=== PATIENT | female | born 1960 | race African-American/Black ===

== ENCOUNTER 2017-06-29 11:52 | Emergency (ER) | payer SELFPAY ==
[2017-06-29 12:02] VITALS: BP 141/84
--- NOTE | 2017-06-29 12:22 | ER Document Report ---
HPI - HPI Pain Level: 5 Notes: Patient is a 57-year-old female with history of hypertension, previous CVA, eczema, and borderline diabetes (not on meds) who presents to the ED complaining of an eczema flareup to her antecubital space bilaterally, right hand, and the flexor area of the right lateral neck 1-2 weeks. Patient has not been using any medicines for her symptoms. Rash is occ pruritic. She denies any new exposure to chemicals, detergents, soaps, or insect bites. Patient states that she recently moved to the area. She is eating and drinking without difficulties. She is urinating normally and having normal bowel movements. She denies any other recent illness. She has not noticed any abscess or purulent discharge. Denies any drug allergies. Denies any headache , fever, neck pain, URI, sore throat, chest pain, palpitations, syncope, cough, shortness of breath, wheeze, dyspnea, abdominal pain, nausea/vomiting/diarrhea, urinary retention, dysuria, hematuria, numbness/tingling, muscle paralysis/ weaknes. - ROS Systems Reviewed and Negative: Yes All other systems reviewed and negative Past Medical History - Social History Smoking Status: Current Every Day Smoker Family History: Reviewed & Not Pertinent Vertical Provider Document - CONSTITUTIONAL Agree With Documented VS: Yes Notes: PHYSICAL EXAMINATION: GENERAL: Well-appearing, well-nourished and in no acute distress. HEAD: Atraumatic, normocephalic. EYES: Pupils equal round and reactive to light, extraocular movements intact, sclera anicteric, conjunctiva are normal. ENT: Nares patent and without discharge. oropharynx clear without exudates. No tonsilar hypertrophy or erythema. Moist mucous membranes. NECK: Normal range of motion, supple without lymphadenopathy LUNGS: Breath sounds clear to auscultation bilaterally and equal. No wheezes rales or rhonchi. HEART: Regular rate and rhythm without murmurs, rubs, gallops. Musculoskeletal: FROM to passive/active. Strength 5+/5. Extremities: No cyanosis, clubbing, or edema b/l. Peripheral pulses 2+. Capillary refill less than 3 seconds. NEUROLOGICAL: Normal speech, normal gait. Normal sensory, motor exams PSYCH: Normal mood, normal affect. SKIN: maculopapular mildly erythemic rash to the flexor surfaces of the arms, neck, rt hand. mildly thickened skin. no abscess, streaks, or purulence. Non- tender. - INFECTION CONTROL TRAVEL OUTSIDE OF THE [place] IN LAST 30 DAYS: No Course - Re-evaluation Re-evalutation: 06/29/17 12:26 Patient is an afebrile, well-hydrated, 57-year-old female who presents to the ED with an eczema flareup based on H&P today. Vitals are acceptable. PE is otherwise unremarkable. No other labs or imaging warranted at this time based on H&P. Patient has no tachycardia, tachypnea, or hypoxia. There is no evidence of cellulitis, abscess, sepsis, or other systemic emergent condition at this time. I will send her home with a prescription for triamcinolone cream. Conservative measures otherwise for symptoms. Recheck with your PCM in 3-5 days. Return to the ED with any worsening/concerning symptoms otherwise as reviewed discharge. Patient is in agreement. - Vital Signs Vital signs: Temp Pulse Resp BP Pulse Ox 98.3 F 79 16 141/84 H 98 06/29/17 12:01 06/29/17 12:01 06/29/17 12:01 06/29/17 12:01 06/29/17 12:01 Discharge - Discharge Clinical Impression: Dermatitis Condition: Stable Disposition: HOME, SELF-CARE Instructions: Atopic Dermatitis (Eczema) ([facility]), Topical Steroid Cream or Ointment ([facility]) Additional Instructions: Keep the skin clean Wash with soft soap and water Moisturize Tylenol/ibuprofen if needed Triple antibiotic ointment daily if any break in the skin Use medication as directed Monitor for any worsening symptoms Recheck with your PCM in 3-5 days Consider consult with dermatology for ongoing/worsening symptoms Return to the ED with any worsening symptoms and/or development of fever, headache, chest pain, palpitations, syncope, shortness of breath, trouble breathing, abdominal pain, n/v/d, abscess, purulent discharge, red streaks, worsening swelling, or other worsening symptoms that are concerning to you. Prescriptions: Triamcinolone Acetonide [Aristocort 0.5% Cream 15 gm] 1 applic TP BID #1 tube Forms: Elevated Blood Pressure, Smoking Cessation Education [facility]errals[facility]] - Follow up as needed [facility] [Provider Group] - Follow up as needed
== END 2017-06-29 12:50 | disposition home or self-care (01) ==
LOC: ER 11:52
DX: L30.9 Dermatitis, unspecified (principal); I10 Essential (primary) hypertension; F17.200 Nicotine dependence, unspecified, uncomplicated
CPT/HCPCS: 99282

== ENCOUNTER 2017-07-03 12:16 | Emergency (ER) | payer SELFPAY ==
--- NOTE | 2017-07-03 12:46 | ER Document Report ---
ED GI/ - General Chief Complaint: Vaginal Pain Stated Complaint: VAGINAL DISCOMFORT Time Seen by Provider: 07/03/17 12:40 Mode of Arrival: Ambulatory Information source: Patient TRAVEL OUTSIDE OF THE [place] IN LAST 30 DAYS: No - HPI Patient complains to provider of: Vaginal discharge Notes: 07/03/17 12:45 Patient is here with complaints of vaginal discharge and dysuria for the last few days. She states that she wore a tight pair of jeans a few days prior and thinks that she may have irritated things. She is not sexually active. She denies abdominal pain. She denies nausea, vomiting, diarrhea. She denies fever. No rash. No chest pain or shortness of breath. No numbness, tingling, weakness. She denies any other complaints at this time. - Related Data Allergies/Adverse Reactions: iodine Allergy (Verified 07/03/17 12:19) Past Medical History - Social History Smoking Status: Unknown if Ever Smoked Family History: Reviewed & Not Pertinent Renal/ Medical History: Denies: Hx Peritoneal Dialysis Review of Systems - Review of Systems -: Yes All other systems reviewed and negative Physical Exam - Vital signs Vitals: Temp Pulse Resp BP Pulse Ox 98.6 F 65 20 131/76 H 99 07/03/17 12:21 07/03/17 12:21 07/03/17 12:21 07/03/17 12:21 07/03/17 12:21 - Notes Notes: GENERAL: alert, cooperative, nontoxic, no distress. HEAD: normocephalic, atraumatic EYES: conjunctiva pink without discharge, no external redness or swelling. EARS: no external swelling, no external redness NOSE: atraumatic, no external swelling MOUTH/THROAT: mucous membranes moist and pink, posterior pharynx without erythema, swelling, exudate. No trismus or drooling. NECK: soft, supple, full range of motion, no meningismus. CHEST: no distress, lungs clear and equal throughout. No wheezing, rales, rhonchi. CARDIAC: regular rate and rhythm, no murmur, normal capillary refill, normal pulses. No peripheral edema noted. ABDOMEN: Soft, nontender. No rebound tenderness or guarding. No mass. BACK: full range of motion, no CVA tenderness. EXTREMITIES: full range of motion of all extremities. No redness, no swelling. NEURO: alert and oriented x 3, no focal deficits, full range of motion of all extremities. PYSCH: appropriate mood, affect. Patient is cooperative. SKIN: pink, warm, dry, no rash. : Performed with female comic artist at the bedside. External genitalia appears normal with no discharge, rash, erythema. Course - Re-evaluation Re-evalutation: 07/03/17 13:31 Patient is nontoxic appearing with stable vitals. She is here with complaints of dysuria as well as vaginal discharge. Initially she stated that she was not sexually active, upon further investigation, last sexual intercourse was 1-2 months ago. Her symptoms have been present for the last few days. She has a benign exam with no rash. Urinalysis shows UTI. Wet prep shows Trichomonas as well as bacterial vaginosis. Due to the fact that she is positive for trichomonas, GC chlamydia culture has been ordered and is currently pending. Patient will be treated with Rocephin and Zithromax in the emergency department at this time. Patient will be discharged home with a prescription for Flagyl for bacterial vaginosis and tract, as well as Macrobid for UTI. Follow-up with her primary care doctor or the health department for HIV and syphilis testing. Follow-up sooner for abdominal pain, high fever, persistent vomiting, or for any further concerns. The patient is noted to have elevated blood pressure during today's emergency department visit. The patient was informed of this finding. The patient was instructed that this may be related to pre-hypertension and requires further evaluation with a primary care provider. The patient has no hypertensive symptoms at this time. The patient's emergency department workup and current diagnosis were explained to the patient and or family. Follow-up instructions were provided. Medications if prescribed were discussed. Instructions for when to return to the emergency department including specific worrisome symptoms were discussed with the patient and/or family. - Vital Signs Vital signs: Temp Pulse Resp BP Pulse Ox 98.6 F 65 20 131/76 H 99 07/03/17 12:21 07/03/17 12:21 07/03/17 12:21 07/03/17 12:21 07/03/17 12:21 - Laboratory Laboratory results interpreted by me: 07/03/17 12:35 Urine Urobilinogen 4.0 H Ur Leukocyte Esterase LARGE H Urine Ascorbic Acid 40 H Discharge - Discharge Clinical Impression: Trichimoniasis, Bacterial vaginosis UTI (urinary tract infection) Qualifiers: Urinary tract infection type: acute cystitis Hematuria presence: without hematuria Qualified Code(s): N30.00 - Acute cystitis without hematuria Condition: Stable Disposition: HOME, SELF-CARE Instructions: Nitrofurantoin ([facility]), Urinary Tract Infection ([facility]), Urinary Anesthetic Agent ([facility]), Trichomonas Infection ([facility]), Vaginosis, Bacterial ([facility]) Additional Instructions: Take medications as prescribed. Do not drink alcohol while taking the Flagyl. Take lots of fluids. Follow-up with your DIRECTOR INDEPENDENT, your family doctor or the health department for HIV and syphilis testing. Follow-up sooner for worsening pain, fever, abdominal pain, persistent vomiting, or for any further concerns. Your blood pressure was elevated during today's visit. Have this rechecked with your doctor. Prescriptions: Metronidazole [Flagyl 500 mg Tablet] 500 mg PO Q6H #28 tablet Nitrofurantoin/Nitrofuran Mac [Macrobid 100 mg Capsule] 1 tab PO BID #20 capsule Phenazopyridine HCl [Pyridium 200 mg Tablet] 200 mg PO TID #9 tablet Forms: Elevated Blood Pressure, Smoking Cessation Education Referrals: [facility] [Provider Group] - Follow up as needed
[2017-07-03 12:53] LABS: APPEARANCE,URINE CLOUDY; BILIRUBIN,URINE NEGATIVE (NEGATIVE); COLOR,URINE YELLOW; GLUCOSE, URINE NEGATIVE (NEGATIVE); KETONES,URINE NEGATIVE (NEGATIVE); LEUKOCYTE ESTERASE,URINE LARGE (NEGATIVE); NITRITE,URINE NEGATIVE (NEGATIVE); PROTEIN,URINE NEGATIVE (NEGATIVE); URINE SPECIFIC GRAVITY 1.019
[2017-07-03 13:21] LABS: BACTERIA (WET MOUNT) 4+ BACTERIA SEEN; EPITHELIALS (WET MOUNT) 3+ EPITHELIALS SEEN; T.VAGINALIS (WET MOUNT) TRICHOMONAS SEEN; WBCS (WET MOUNT) 3+ WBCS SEEN; YEAST (WET MOUNT) NO YEAST SEEN
[2017-07-03] MEDS ORDERED: LIDOCAINE 1% INJ-PF (10 MG/ML) 30 ML SDV INFIL ONE (13:30)
[2017-07-03] MEDS ORDERED: AZITHROMYCIN 250 MG TABLET PO ONE (13:30)
[2017-07-03] MEDS ORDERED: CEFTRIAXONE INJ 250 MG VIAL IM ONE (13:30)
[2017-07-03 14:20] VITALS: BP 147/80
[2017-07-03 15:46] LABS: CHLAM PCR NOT DETECTED (NOT DETECT); GON PCR NOT DETECTED (NOT DETECT)
== END 2017-07-03 14:25 | disposition home or self-care (01) ==
LOC: ER 12:16
DX: N30.00 Acute cystitis without hematuria (principal); N76.0 Acute vaginitis; B96.89 Other specified bacterial agents as the cause of diseases classified elsewhere; A59.00 Urogenital trichomoniasis, unspecified; R10.2 Pelvic and perineal pain
CPT/HCPCS: 99283; 96372; 87210; 81001; 87491; 87591; J3490; J0696

== ENCOUNTER 2017-10-01 11:44 | Emergency (ER) | payer MEDICAID ==
[2017-10-01 11:54] VITALS: BP 122/88
--- NOTE | 2017-10-01 12:37 | ER Document Report ---
HPI - HPI Patient complains to provider of: High blood pressure medication refill needed Onset: Other - This morning Pain Level: Denies Context: 57-year-old female has an appointment with [facility] on Sunday but she took her last lisinopril 40 mg this morning and refill. She also is complaining of chronic eczema to her lateral third and fourth fingers of her right hand. She was given cream here in the past which helped. 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 No fever or chills. No chest pain or shortness of breath. Past Medical History - General Information source: Patient - Social History Smoking Status: Current Every Day Smoker Frequency of alcohol use: None Drug Abuse: None Lives with: Family Family History: Reviewed & Not Pertinent - Past Medical History Cardiac Medical History: Reports: Hx Hypercholesterolemia, Hx Hypertension Pulmonary Medical History: Reports: Hx Asthma Endocrine Medical History: Reports: Hx Diabetes Mellitus Type 2 Renal/ Medical History: Denies: Hx Peritoneal Dialysis Past Surgical History: Reports: Hx Hysterectomy Vertical Provider Document - CONSTITUTIONAL Agree With Documented VS: Yes Exam Limitations: No Limitations - INFECTION CONTROL TRAVEL OUTSIDE OF THE [place] IN LAST 30 DAYS: No - NECK Neck: Supple - RESPIRATORY Respiratory: Breath Sounds Normal, No Respiratory Distress - CARDIOVASCULAR Cardiovascular: Regular Rate, Regular Rhythm - MUSCULOSKELETAL/EXTREMETIES Musculoskeletal/Extremeties: MAEW, FROM, Non-Tender - DERM Integumentary: Rash - Right fourth and fifth finger lateral dyshidrotic eczema Course - Vital Signs Vital signs: Temp Pulse Resp BP Pulse Ox 98.4 F 72 16 122/88 H 98 10/01/17 11:51 10/01/17 11:51 10/01/17 11:51 10/01/17 11:51 10/01/17 11:51 Discharge - Discharge Clinical Impression: Dyshidrotic eczema, Medication refill for high blood pressur Condition: Good Disposition: HOME, SELF-CARE Instructions: Atopic Dermatitis (Eczema) ([facility]), High Blood Pressure ([facility]) Additional Instructions: See [facility] on Sunday as planned I given new prescription for lisinopril 40 mg daily which is her usual medication until you see [facility] Get [id number] 1% hydrocortisone which will treat the dyshidrotic eczema which is a chronic eczema Referral to cement crusher operator Prescriptions: Lisinopril 40 mg PO DAILY #30 tablet Referrals: [facility] [ACTIVE STAFF] - Follow up as needed
== END 2017-10-01 13:07 | disposition home or self-care (01) ==
LOC: ER 11:44
DX: L30.1 Dyshidrosis [pompholyx] (principal); I10 Essential (primary) hypertension; F17.200 Nicotine dependence, unspecified, uncomplicated; E78.00 Pure hypercholesterolemia, unspecified; E11.9 Type 2 diabetes mellitus without complications; Z90.710 Acquired absence of both cervix and uterus
CPT/HCPCS: 99281

== ENCOUNTER 2018-07-03 08:21 | Day surgery (SDC) | payer MEDICAID, OTHER ==
[2018-07-03] MEDS ORDERED: PROPOFOL INJ 200 MG/20 ML VIAL IV ONE (10:03)
[2018-07-03] MEDS ORDERED: ONDANSETRON HCL INJ/PF 4 MG/2 ML SDV ONE (10:03)
[2018-07-03] MEDS ORDERED: DIPHENHYDRAMINE HCL 50 MG/ML VIAL IV PRN (11:42)
[2018-07-03 11:55] VITALS: BP 155/89
--- NOTE | 2018-07-03 12:08 | Operative Report ---
Operative Report DATE OF SURGERY: 07/03/18 Operative Report: The risks, benefits and alternatives of the procedure including the risk of bleeding, perforation requiring surgery have been explained to the patient in detail and informed consent has been obtained. Patient is brought back to the operating room and placed in a left, lateral decubital position. Timeout was called. Propofol medication is administered. A rectal examination is done which did not reveal any masses, tears or fissures. An Olympus videoscope was introduced into the patient's rectum. The scope was then carefully advanced all the way to the cecum. The cecum was identified by the usual anatomical landmarks including the ileocecal valve as well as the appendiceal office. Photodocumentation is obtained. The scope was then sequentially pulled back via the various segments of the colon including the ascending colon, hepatic flexure, transverse colon, splenic flexure, descending colon and finally into the rectosigmoid portions of the colon. Retroflexion maneuvers performed. PREOPERATIVE DIAGNOSIS: Colorectal cancer screening POSTOPERATIVE DIAGNOSIS: Multiple polyps were removed via biopsy forceps OPERATION: Colonoscopy with biopsy SURGEON: JUSTIN ANDERSEN ANESTHESIA: LMAC TISSUE REMOVED OR ALTERED: As noted above. COMPLICATIONS: None. ESTIMATED BLOOD LOSS: None. INTRAOPERATIVE FINDINGS: As noted above. PROCEDURE: Patient tolerated the procedure well. No immediate postprocedure complications are noted. Patient discharged in good condition. Discharge date 07/03/2018. Discharge diet: Regular. Discharge activity: Regular. 2 to 3-week follow-up to discuss findings. Patient is instructed to call the office or proceed to the emergency room should there be any further proximal questions. Wait on the pathology.
== END 2018-07-03 11:50 | disposition home or self-care (01) ==
LOC: OROUT 08:21
PROVIDERS: ATTEND Internal Medicine Gastroenterology
DX: Z12.11 Encounter for screening for malignant neoplasm of colon (principal); K63.5 Polyp of colon; Z80.0 Family history of malignant neoplasm of digestive organs; I10 Essential (primary) hypertension; E11.9 Type 2 diabetes mellitus without complications; F17.210 Nicotine dependence, cigarettes, uncomplicated; Z79.899 Other long term (current) drug therapy
CPT/HCPCS: 45380; 82962; 88342 ×2; 88305 ×2; J2405; J2704; 811

== ENCOUNTER → 2019-11-21 | Outpatient (CLI) | payer OTHER ==
--- NOTE | 2019-11-21 11:55 | [facility] ---
EXAM DESCRIPTION: BILAT SCREENING MAMMO W/CAD IMAGES COMPLETED DATE/TIME: 11/21/2019 11:41 am REASON FOR STUDY: Z12.31 ENCOUNTER FOR SCREENING MAMMOGRAM FOR MALIGNANT NEOPLASM OF BREAST Z12.31 ENCNTR SCREEN MAMMOGRAM FOR MALIGNANT NEOPLASM OF IAIN COMPARISON: None. EXAM PARAMETERS: Standard craniocaudal and mediolateral oblique views of each breast recorded using digital acquisition. Read with the assistance of CAD. .[facility] - [employer] Version 9.2 LIMITATIONS: None. FINDINGS: No suspicious masses, suspicious calcifications or architectural distortion. No areas of c oncern. IMPRESSION: NEGATIVE MAMMOGRAM. BIRADS 1 BREAST DENSITY: b. There are scattered areas of fibroglandular density. BIRAD: ASSESSMENT: 1 NEGATIVE RECOMMENDATION: ROUTINE SCREENING COMMENT: The patient has been notified of the results by letter per MQSA requirements. Additional no tification policies are in place for contacting patient with suspicious or incomplete findings. Quality ID #[id number]: The [employer] recommends an annual screening mammogram for women aged 40 years or over. This facility utilizes a reminder system to ensure that all patients receive reminder letters, and/or direct phone calls for appointments. This includes reminders for routine scr eening mammograms, diagnostic mammograms, or other Breast Imaging Interventions when appropriate. Th is patient will be placed in the appropriate reminder system. TECHNICAL DOCUMENTATION: FINDING NUMBER: (1) ASSESSMENT: (1) JOB ID: [id number] 2010 [employer]- All Rights Reserved Reading location - IP/workstation name: [email or web address]
== END ==
LOC: WI 11:05
PROVIDERS: ATTEND Nurse Practitioner Family
DX: Z12.31 Encounter for screening mammogram for malignant neoplasm of breast (principal)
CPT/HCPCS: 77067